=== PATIENT | male | born 1960 | race Two or more races ===

== ENCOUNTER 2022-12-04 14:04 | Emergency (ER) | payer BC, OTHER ==
[~2022-12-04] VITALS: Ht 167.6 cm; Wt 81.8 kg
[2022-12-04 16:09] VITALS: BP 140/78; PULSE 64; RESP 18; TEMP 98.1; O2SAT 98
[2022-12-04] MEDS ORDERED: HYDROcodone-ACET 5/325MG TAB PO ONE (16:15)
[2022-12-04] MEDS ORDERED: IBUP-1456 PO (16:35)
== END 2022-12-04 16:44 | disposition home or self-care (01) ==
LOC: ER 14:04
DX: S52.591A Other fractures of lower end of right radius, initial encounter for closed fracture (principal); W18.39XA Other fall on same level, initial encounter; Y93.89 Activity, other specified; Y92.89 Other specified places as the place of occurrence of the external cause; Y99.8 Other external cause status
CPT/HCPCS: 29125; 73110

== ENCOUNTER 2023-08-31 13:55 | Emergency (ER) | payer MEDICARE, OTHER ==
[~2023-08-31] VITALS: Ht 167.6 cm; Wt 78.7 kg
[~2023-08-31 13:55] MED LIST: IBUP-1456 PO
[2023-08-31] MEDS ORDERED: PANTOPRAZOLE 40 MG/10 ML VIAL INJ IV ONE (14:30)
[2023-08-31] MEDS ORDERED: SODIUM CHLORIDE 0.9% 1,000 ML IV ONE (14:30)
[2023-08-31] MEDS ORDERED: ONDANSETRON HCL 4 MG/2 ML VIAL IV ONE (14:30)
[2023-08-31 15:41] LABS: Urine Bacteria None Seen /hpf (None Seen)
[2023-08-31 15:56] LABS: Basophils # (auto) 0 10 ^3/uL (0-0.2); Basophils % (auto) 0.2 % (0.0-2.0); Eosinophils # (auto) 0 10 ^3/uL (0-0.8); Eosinophils % (auto) 0.2 % (0.0-7.0); Hematocrit 50.2 % (41.0-53.0); Hemoglobin 17.1 g/dL (13.5-17.5); Lymphocytes # (auto) 1.5 10 ^3/uL (0.4-5.4); Lymphocytes % (auto) 18.4 % (10.0-50.0); Mean Corpuscular Hemoglobin 31.9 pg (28.0-32.0); Mean Corpuscular Hgb Conc. 34.2 g/dL (32.0-36.0); Mean Corpuscular Volume 93.3 fL (80.0-100.0); Monocytes # (auto) 1.1 10 ^3/uL (0-1.3); Monocytes % (auto) 13.2 % (0.0-12.0); Neutrophils # (auto) 5.6 10 ^3/uL (1.6-8.6); Nucleated Red Blood Cells % 0.1 %; Red Blood Cells 5.38 10^6/uL (4.5-5.90); Red Cell Distribution Width 13.1 % (11.8-14.3); White Blood Cell 8.3 10^3/uL (4.4-10.8)
[2023-08-31 16:05] LABS: Chloride 103 mmol/L (98-107); Potassium 3.7 mmol/L (3.5-5.1); Sodium 132 mmol/L (136-145)
[2023-08-31 16:06] LABS: Anion Gap 5 (5-15); Carbon Dioxide 24 mmol/L (20-30)
[2023-08-31 16:11] LABS: BUN/Creatinine Ratio 16.5 (10.0-20.0); Blood Urea Nitrogen 21 mg/dL (9-23); Glucose 103 mg/dL (74-106); Lipase 38 U/L (12-53)
[2023-08-31 16:37] LABS: Urine Blood Negative /uL (Negative); Urine Clarity Clear (Clear); Urine Color Yellow (Yellow); Urine Mucus FEW (None Seen); Urine Protein, UAD 1+ (Negative); Urine Specific Gravity 1.033 (1.001-1.035); Urine Urobilinogen Normal (Negative); Urine WBC 1 /hpf (0 - 3)
[2023-08-31 20:48] VITALS: BP 123/83; PULSE 94; RESP 14; TEMP 98.3; O2SAT 96
[2023-08-31] MEDS ORDERED: ACETAMINOPHEN 325 MG TAB PO PRN (21:00)
[2023-08-31] MEDS ORDERED: TEMAZEPAM 15 MG CAP PO PRN (21:00)
[2023-08-31] MEDS ORDERED: HYDROcodone-ACET 5/325MG TAB PO PRN (21:00)
[2023-08-31] MEDS ORDERED: ONDANSETRON HCL 4 MG/2 ML VIAL IV PRN (21:00)
== END 2023-08-31 21:53 | disposition left against medical advice (07) ==
LOC: ER 13:55 → OVERFLOW 20:49 → UNDOADMIN 20:49 → ER 21:53
DX: R10.13 Epigastric pain (principal); Z79.899 Other long term (current) drug therapy
CPT/HCPCS: 36415; 74176; 80048; 81001; 83690; 85025